=== PATIENT | male | born 1995 | race Caucasian/White ===

== ENCOUNTER 2025-01-04 11:18 | Emergency (ER) | payer BC, SELFPAY ==
[2025-01-04 11:30] VITALS: BP 129/86; PULSE 61; TEMP 36.6; O2SAT 100; BMI 22.2
--- NOTE | 2025-01-04 11:47 | ED.GENADUL1 ---
HPI HPI - General Adult General Chief complaint: Abdominal Pain Stated complaint: VOMITNG CHEST PAIN Time Seen by Provider: 01/04/25 11:41 Source: patient Mode of arrival: walk-in Limitations: no limitations History of Present Illness HPI narrative: 29-year-old male presents for nausea and vomiting and epigastric pain. It started this morning. He was fine when he went to bed last night. He has not had trauma or fever or hematemesis. No diarrhea. He states feeling time this happened to him before was when he drank too much alcohol but he did not drink alcohol last night. No known ill contacts. He has been working outside and thinks he has not been drinking enough water. Related Data Previous Rx's ?Medication ?Instructions ?Recorded ondansetron 4 mg disintegrating 4 mg PO Q6H PRN nausea and 01/04/25 tablet vomiting #20 tabs Allergies Allergy/AdvReac Type Severity Reaction Status Date / Time No Known Drug Allergies Allergy Verified 01/04/25 11:32 Review of Systems ROS Narrative A ten point review of systems is negative except as noted above. PFSH PFSH Social History Little interest or pleasure in doing things: not at all Feeling down, depressed, or hopeless: not at all Exam Narrative Exam Narrative: Nurses note and vital signs reviewed and patient is not hypoxic. General:The patient appears well and in no apparent distress.Patient is resting comfortably on cart. Skin:Warm, dry, mild pallor noted.There is no rash noted. Head:Normocephalic, atraumatic Eye: Normal conjunctiva, no drainage Ears, Nose, Mouth, and Throat: oral mucosa is moist. Nares patent. Cardiovascular:Regular Rate and Rhythm Respiratory:Patient is in no distress, no accessory muscle use, lungs are clear to auscultation, no wheezing, rales or rhonchi Back:non-tender GI: Mild tenderness in the epigastric area. No distention or mass or rebound or guarding Musculoskeletal: The patient has no evidence of calf tenderness, no pitting edema, symmetrical pulses noted bilaterally Neurological:A&O, normal speech Psychiatric:Cooperative Constitutional Vital Signs, click to edit/add: Last Vital Signs Temp 97.9 F 01/04/25 11:30 Pulse 61 01/04/25 11:30 Resp 20 01/04/25 11:30 BP 129/86 01/04/25 11:30 Pulse Ox 100 01/04/25 11:30 O2 Del Method Room Air 01/04/25 11:30 Course Vital Signs Vital signs: Vital Signs Temperature 97.9 F 01/04/25 11:30 Pulse Rate 61 01/04/25 11:30 Respiratory Rate 20 01/04/25 11:30 Blood Pressure 129/86 01/04/25 11:30 Pulse Oximetry 100 01/04/25 11:30 Oxygen Delivery Method Room Air 01/04/25 11:30 Temperature 97.9 F 01/04/25 11:30 Pulse Rate 61 01/04/25 11:30 Respiratory Rate 20 01/04/25 11:30 Blood Pressure 129/86 01/04/25 11:30 Pulse Oximetry 100 01/04/25 11:30 Oxygen Delivery Method Room Air 01/04/25 11:30 Medical Decision Making MDM Narrative Medical decision making narrative: His workup not show any significant abnormalities. He was given IV fluids and Zofran and is tolerating p.o. liquids and is discharged home with a prescription for Zofran. My clinical impression is that he has nausea and vomiting from viral gastroenteritis. Treatment diagnosis and follow-up were discussed with the patient. The possibility that this is from cannabinol use is also entertained. Differential Diagnosis Differential Diagnosis: Nausea and vomiting, cannabinoid hyperemesis syndrome, dehydration Lab Data Lab results reviewed: Yes I reviewed the patient's lab results Labs: Lab Results 01/04/25 Range/Units 11:38 WBC 10.0 (4.0-11.0) 10^3/uL RBC 4.92 (4.70-6.10) 10^6/uL Hgb 13.0 L (14.0-18.0) g/dL Hct 40.2 L (42.0-54.0) % MCV 81.7 (80.0-94.0) fL MCH 26.4 (25.9-34.0) pg MCHC 32.3 (29.9-35.2) g/dL RDW 13.9 (11.0-15.0) % Plt Count 360 (150-450) 10^3/uL MPV 9.0 L (9.5-13.5) fL Neut % (Auto) 88.0 H (43.0-75.0) % Lymph % (Auto) 7.7 L (20.5-60.0) % [place] % (Auto) 3.8 (1.7-12.0) % Eos % (Auto) 0.1 L (0.9-7.0) % Baso % (Auto) 0.3 (0.2-2.0) % Neut # (Auto) 8.8 H (1.4-6.5) 10^3/uL Lymph # (Auto) 0.8 L (1.2-3.8) 10^3/uL [place] # (Auto) 0.4 (0.3-0.8) 10^3/uL Eos # (Auto) 0.0 (0.0-0.7) 10^3/uL Baso # (Auto) 0.0 (0.0-0.1) 10^3/uL Abs Immat Gran (auto) 0.01 (0.00-0.03) 10^3/uL Imm/Tot Granulo (auto) 0.1 (0.0-0.5) % Sodium 136 (136-145) mmol/L Potassium 3.4 L (3.5-5.1) mmol/L Chloride 102 (98-107) mmol/L Carbon Dioxide 26.5 (21.0-32.0) mmol/L Anion Gap 10.9 BUN 8.0 (7.0-18.0) mg/dL Creatinine 0.73 (0.70-1.30) mg/dL Est GFR ( Amer) >60 (>=60 mL/min/1.73m^2) Est GFR (Non-Af Amer) >60 (>=60 mL/min/1.73m^2) BUN/Creatinine Ratio 11.0 Glucose 119 H (74-106) mg/dL Calcium 9.4 (8.5-10.1) mg/dL Total Bilirubin 0.6 (0.2-1.0) mg/dL Direct Bilirubin 0.1 (0.0-0.2) mg/dL AST 20 (15-37) U/L ALT 28 (16-63) U/L Alkaline Phosphatase 95 (46-116) U/L Total Protein 8.0 (6.4-8.2) g/dL Albumin 4.2 (3.4-5.0) g/dL Globulin 3.8 g/dL Albumin/Globulin Ratio 1.1 Amylase 128 H (25-115) U/L Lipase 88.0 H (16.0-77.0) U/L Discharge Plan Discharge Chief Complaint: Abdominal Pain Clinical Impression: Nausea & vomiting Patient Disposition: Home, Self-Care Time of Disposition Decision: 12:43 Condition: Good Mode of Transportation: Private Vehicle Prescriptions / Home Meds: New ondansetron 4 mg tablet,disintegrating 4 mg PO Q6H PRN (Reason: nausea and vomiting) Qty: 20 0RF Print Language: Slovenian Instructions: Acute Nausea and Vomiting (ED)
[2025-01-04] MEDS: 0.9 % SODIUM CHLORIDE 1,000 ML 1000 ML IV (11:55)
[2025-01-04] MEDS: FAMOTIDINE/PF 20 MG/2 ML VIAL IV (11:55)
[2025-01-04 12:03] LABS: Hematocrit 40.2 % (42.0-54.0); Hemoglobin 13.0 g/dL (14.0-18.0); Immature Granulocytes Abs Auto 0.01 10^3/uL (0.00-0.03); Immature Granulocytes Pct Auto 0.1 % (0.0-0.5); Lymphocytes Absolute Auto 0.8 10^3/uL (1.2-3.8); Mean Corpuscular HGB Conc 32.3 g/dL (29.9-35.2); Mean Corpuscular Hemoglobin 26.4 pg (25.9-34.0); Mean Corpuscular Volume 81.7 fL (80.0-94.0); Platelet Count 360 10^3/uL (150-450); Red Blood Count 4.92 10^6/uL (4.70-6.10); White Blood Count 10.0 10^3/uL (4.0-11.0)
[2025-01-04 12:18] LABS: Alanine Aminotransferase 28 U/L (16-63); Albumin Globulin Ratio 1.1; Albumin Level 4.2 g/dL (3.4-5.0); Alkaline Phosphatase 95 U/L (46-116); Amylase 128 U/L (25-115); Anion Gap 10.9; Aspartate Amino Transferase 20 U/L (15-37); Blood Urea Nitrogen 8.0 mg/dL (7.0-18.0); Calcium 9.4 mg/dL (8.5-10.1); Carbon Dioxide 26.5 mmol/L (21.0-32.0); Chloride 102 mmol/L (98-107); Estimated GFR (African America >60 (>=60 mL/min/1.73m^2); Estimated GFR (Non-African Ame >60 (>=60 mL/min/1.73m^2); Globulin 3.8 g/dL; Glucose 119 mg/dL (74-106); Lipase 88.0 U/L (16.0-77.0); Potassium 3.4 mmol/L (3.5-5.1); Sodium 136 mmol/L (136-145); Total Protein 8.0 g/dL (6.4-8.2)
--- NOTE | 2025-01-04 12:49 | PC.NURSE ---
pt states he does not feel much better at this time states it's mostly his pain
[2025-01-04] MEDS: KETOROLAC TROMETHAMINE 30 MG/ML VIAL IVP (13:04)
--- NOTE | 2025-01-04 13:31 | PC.NURSE ---
pt does admit to feeling better at this time pain and nausea both gone currently
== END 2025-01-04 14:07 | disposition home or self-care (01) ==
LOC: ER 13:45
PROVIDERS: Emergency Provider Emergency Medicine
DX: R11.2 Nausea with vomiting, unspecified (principal)
CPT/HCPCS: 36415; 80048; 80076; 82150; 83690; 85025; 96361; 96374; 96375; 96376; 99284; J1885; J2405; J3490